=== PATIENT | male | born 1935 | race Caucasian/White ===

== ENCOUNTER 2017-03-28 17:33 | Emergency (ER) | payer MEDICARE ==
[2017-03-28 18:42] LABS: HEMOGLOBIN 16.2 gm/dl (14.0-17.5); RED BLOOD COUNT 5.17 M/UL (4.20-5.50); WHITE BLOOD COUNT 7.3 K/UL (4.5-11.0)
[2017-03-28 19:04] LABS: BUN/CREATININE RATIO 16 (0-10)
== END 2017-03-28 23:20 | disposition home or self-care (01) ==
LOC: ER1 17:33
PROVIDERS: Family Medicine
DX: J44.9 Chronic obstructive pulmonary disease, unspecified (principal); I48.91 Unspecified atrial fibrillation; Z95.1 Presence of aortocoronary bypass graft; Z95.2 Presence of prosthetic heart valve; Z87.891 Personal history of nicotine dependence; Z79.82 Long term (current) use of aspirin; Z79.899 Other long term (current) drug therapy
CPT/HCPCS: 36415; 71010; 80053; 82550; 82553; 83874; 83880; 84484; 85025; 85610; 85730; 93005; 96372; 99285; J1650; J7050; Q9963

== ENCOUNTER 2021-03-27 17:49 | Emergency (ER) | payer MEDICARE ==
[2021-03-27 18:57] LABS: HEMOGLOBIN 15.3 gm/dl (14.0-17.5); RED BLOOD COUNT 4.66 M/UL (4.20-5.50); WHITE BLOOD COUNT 7.5 K/UL (4.5-11.0)
[2021-03-27 19:17] LABS: BUN/CREATININE RATIO 21 (0-10)
== END 2021-03-27 20:40 | disposition home or self-care (01) ==
LOC: ER1 17:49
PROVIDERS: Physician Assistant
DX: R63.4 Abnormal weight loss (principal); R53.1 Weakness; J44.9 Chronic obstructive pulmonary disease, unspecified; I10 Essential (primary) hypertension
CPT/HCPCS: 71045; 80053; 83690; 83735; 85025; 99285

== ENCOUNTER → 2021-04-20 | Outpatient (CLI) | payer MEDICARE | LOC: RAD 09:17 | DX: R10.13 Epigastric pain (principal); R11.0 Nausea; K44.9 Diaphragmatic hernia without obstruction or gangrene | CPT/HCPCS: 74246 ==